=== PATIENT | male | born 1960 | race Caucasian/White ===

== ENCOUNTER 2017-08-29 11:45 | Emergency (ER) | payer BC ==
[2017-08-29 13:07] LABS: INR 1.09 (0.77-1.02)
--- NOTE | 2017-08-29 13:07 | RAD ---
HISTORY: Lightheaded COMPARISONS: None VIEWS: 1: frontal portable view of the chest at 12:50 PM. The right costophrenic angle is cut off. FINDINGS: LINES AND TUBES: A right-sided chest port is noted from an internal jugular vein approach with the tip overlying the superior vena cava. CARDIOMEDIASTINAL SILHOUETTE: The cardiomediastinal silhouette is normal for portable technique. PLEURA: The costophrenic angles are sharp. No pleural abnormalities are noted. LUNG PARENCHYMA: The lungs are clear. ABDOMEN: The upper abdomen is clear. There is no subphrenic gas. BONES AND SOFT TISSUES: No bone or soft tissue abnormalities are noted. Surgical clips are noted overlying the neck. IMPRESSION: NO ACTIVE CARDIOPULMONARY DISEASE.
[2017-08-29 13:08] LABS: EGFR Non-African American 61.2 (>60)
[2017-08-29 13:36] LABS: ABS Basophils 0 10^3/ul (0-0.2); ABS Eosinophils 0 10^3/ul (0-0.6); ABS Lymphocytes 0.2 10^3/ul (1.0-4.8); ABS Monocytes 0 10^3/ul (0-0.8); ABS Neutrophils 0 10^3/ul (1.5-7.7); ABS Nucleated RBC 0 10^3/ul; Eosinophil % 1.5 % (0-6); Hematocrit 21 % (42-52); Hemoglobin 7.3 g/dl (14.0-18.0); Mean Corpuscular HGB Conc 34 g/dl (31-36); Mean Corpuscular Hemoglobin 31 pg (27-31); Mean Corpuscular Volume 90 fL (80-94); Mean Platelet Volume 8.6 um3 (7.4-10.4); Nucleated Red Blood Cells % 3.6; Platelet Count 13 10^3/ul (150-450); Red Blood Count 2.38 10^6/ul (4.0-5.4); Red Cell Distribution Width 18 % (10.5-15); White Blood Count 0.3 10^3/ul (3.5-10.8)
[2017-08-29] MEDS ORDERED: diPHENhydraMINE PO* 25 MG PO ONE (14:21)
[2017-08-29] MEDS ORDERED: Acetaminophen TAB* 325 MG PO ONE (14:21)
[2017-08-29] MEDS ORDERED: Ondansetron INJ* 2 MG/ML VIAL IV ONE (18:51)
[2017-08-29 19:51] VITALS: BP 110/66
--- NOTE | 2017-08-29 20:36 | ED ---
Jerry Yung Stephanie, scribed for Nain Proctor MD on 08/29/17 at 1209 . Dizziness - HPI Summary HPI Summary: The pt is a 57 y/o M presenting to the ED with c/o dizziness that began over one month ago. Symptoms include chills, lightheadedness, epistaxis (began 2- chemos ago), and dysuria. The pt states his lightheadedness is constant. He states he feels fuzzy and his lips feel fuzzy. The pt is a cancer pt who receives chemotherapy 3x per week and then has 2 weeks off and then returns to chemotherapy 3x per week. The pt has prostate cancer that has spread to his lymph nodes since May. The pt states he last had chemotherapy 2 weeks ago. - History Of Current Complaint Chief Complaint: EDDizziness Stated Complaint: DIZZY Time Seen by Provider: 08/29/17 11:50 Hx Obtained From: Patient Onset/Duration: Still Present Timing: Constant Severity Currently: Moderate Character: Lightheaded, Dizzy Aggravating Factor(s): Nothing Alleviating Factor(s): Nothing Associated Signs And Symptoms: Positive: Other: - chills, epistaxis, dysuria - Allergies/Home Medications Allergies/Adverse Reactions: Allergies Allergy/AdvReac Type Severity Reaction Status Date / Time degarelix [From Firmagon] Allergy Hives Verified 08/29/17 11:59 fenoprofen [From Nalfon] Allergy Hives Verified 08/29/17 11:59 Home Medications: Home Medications Albuterol 2.5MG/3ML (0.083%)* [Ventolin 2.5 MG/3 ML NEB.DMITRI*] 2.5 mg INH QID PRN 08/29/17 [History Confirmed 08/29/17] Albuterol inh POWDER (NF) [Proair Respiclick] 2 puff INH QID PRN 08/29/17 [ History Confirmed 08/29/17] Amoxicillin/Clavulanate TAB* [Augmentin TAB 875*] 875 mg PO BID 08/29/17 [ History Confirmed 08/29/17] Aspirin TAB* [Aspirin 325 MG TAB*] 325 mg PO DAILY 08/29/17 [History Confirmed 08/29/17] Atorvastatin* [Lipitor*] 40 mg PO DAILY 08/29/17 [History Confirmed 08/29/17] Clopidogrel TAB* [Plavix TAB*] 75 mg PO DAILY 08/29/17 [History Confirmed ] Fluticasone-Salmeterol 500-50* [Advair Diskus 500-50*] 1 puff INH BID 08/29/17 [ History Confirmed 08/29/17] Lisinopril TAB* [Prinivil TAB*] 40 mg PO DAILY 08/29/17 [History Confirmed 08/29] Metoprolol Succinate XL TAB* [Toprol XL TAB*] 75 mg PO DAILY 08/29/17 [History Confirmed 08/29/17] Omeprazole CAP* [Prilosec CAP* 20 MG] 40 mg PO DAILY 08/29/17 [History Confirmed 08/29/17] Timolol 0.25% OPHTH.SOLN* [Timoptic Ophth.soln 0.25%] 1 drop RIGHT EYE BID 08/29 [History Confirmed 08/29/17] Tiotropium CAP.INH* [Spiriva CAP.INH*] 2 cap INH BID 08/29/17 [History Confirmed 08/29/17] cloNIDine TAB* [Catapres 0.1 MG TAB*] 0.1 mg PO TID 08/29/17 [History Confirmed 08/29/17] PMH/Surg Hx/FS Hx/Imm Hx Respiratory History: Reports: Hx Chronic Obstructive Pulmonary Disease (COPD) Sensory History: Denies: Hx Legally Blind EENT History: Denies: Hx Deafness - Cancer History Cancer Type, Location and Year: PROSTATE CANCER SPREAD TO LYMPH NODES SINCE MAY - Surgical History Surgery Procedure, Year, and Place: L HIP REPLACEMENT. prostatectomy Infectious Disease History: No Infectious Disease History: Denies: Traveled Outside the [place] in Last 30 Days - Family History Known Family History: Positive: Cardiac Disease, Diabetes, Renal Disease - Social History Occupation: Retired Lives: With Family Hx Substance Use: No Substance Use Type: Reports: None Review of Systems Positive: Chills. Negative: Fever Positive: Epistaxis Positive: dysuria Neurological: Other - dizziness, lightheadedness All Other Systems Reviewed And Are Negative: Yes Physical Exam - Summary Physical Exam Summary: General: mildly pale-appearing, no pain distress Skin: warm, color reflects adequate perfusion, dry Head: normal Eyes: EOMI, ED ENT: normal Neck: supple, nontender Respiratory: CTA, breath sounds present Cardiovascular: RRR Abdomen: soft, nontender Bowel: present Musculoskeletal: strength/ROM intact, mild bilateral pedal edema Neurological: normal, sensory/motor intact, A&O x3 Psychological: affect/mood appropriate Triage Information Reviewed: Yes Vital Signs On Initial Exam: Initial Vitals Temp Pulse Resp BP Pulse Ox 97.3 F 81 15 116/64 95 08/29/17 11:52 08/29/17 11:52 08/29/17 11:52 08/29/17 11:52 08/29/17 11:52 Vital Signs Reviewed: Yes Diagnostics - Vital Signs Vital Signs Temp Pulse Resp BP Pulse Ox 08/29/17 11:52 97.3 F 81 15 116/64 95 - Laboratory Lab Results: Lab Results 08/29/17 08/29/17 08/29/17 Range/Units 12:20 12:20 12:20 WBC 0.3 L (3.5-10.8) 10^3/ul RBC 2.38 L (4.0-5.4) 10^6/ul Hgb 7.3 L (14.0-18.0) g/dl Hct 21 L (42-52) % MCV 90 (80-94) fL MCH 31 (27-31) pg MCHC 34 (31-36) g/dl RDW 18 H (10.5-15) % Plt Count 13 L* (150-450) 10^3/ul MPV 8.6 (7.4-10.4) um3 Neut % (Auto) 13.4 L (38-83) % Lymph % (Auto) 71.0 H (25-47) % Hemphill % (Auto) 10.9 H (0-7) % Eos % (Auto) 1.5 (0-6) % Baso % (Auto) 3.2 H (0-2) % Absolute Neuts (auto) 0 L* (1.5-7.7) 10^3/ul Absolute Lymphs (auto) 0.2 L (1.0-4.8) 10^3/ul Absolute Monos (auto) 0 (0-0.8) 10^3/ul Absolute Eos (auto) 0 (0-0.6) 10^3/ul Absolute Basos (auto) 0 (0-0.2) 10^3/ul Absolute Nucleated RBC 0 10^3/ul Nucleated RBC % 3.6 Hem Pathologist Commnt Pending INR (Anticoag Therapy) (0.77-1.02) Sodium 138 L (139-145) mmol/L Potassium 4.0 (3.5-5.0) mmol/L Chloride 102 (101-111) mmol/L Carbon Dioxide 27 (22-32) mmol/L Anion Gap 9 (2-11) mmol/L BUN 27 H (6-24) mg/dL Creatinine 1.22 H (0.67-1.17) mg/dL Est GFR ( Amer) 78.7 (>60) Est GFR (Non-Af Amer) 61.2 (>60) BUN/Creatinine Ratio 22.1 H (8-20) Glucose 115 H (70-100) mg/dL Calcium 8.0 L (8.6-10.3) mg/dL Total Bilirubin 1.30 H (0.2-1.0) mg/dL AST 11 L (13-39) U/L ALT 26 (7-52) U/L Alkaline Phosphatase 68 (34-104) U/L C-Reactive Protein 92.61 H (< 5.00) mg/L Total Protein 6.0 L (6.4-8.9) g/dL Albumin 3.4 (3.2-5.2) g/dL Globulin 2.6 (2-4) g/dL Albumin/Globulin Ratio 1.3 (1-3) Blood Type A Positive Antibody Screen Negative Crossmatch See Detail 08/29/17 Range/Units 12:20 WBC (3.5-10.8) 10^3/ul RBC (4.0-5.4) 10^6/ul Hgb (14.0-18.0) g/dl Hct (42-52) % MCV (80-94) fL MCH (27-31) pg MCHC (31-36) g/dl RDW (10.5-15) % Plt Count (150-450) 10^3/ul MPV (7.4-10.4) um3 Neut % (Auto) (38-83) % Lymph % (Auto) (25-47) % Hemphill % (Auto) (0-7) % Eos % (Auto) (0-6) % Baso % (Auto) (0-2) % Absolute Neuts (auto) (1.5-7.7) 10^3/ul Absolute Lymphs (auto) (1.0-4.8) 10^3/ul Absolute Monos (auto) (0-0.8) 10^3/ul Absolute Eos (auto) (0-0.6) 10^3/ul Absolute Basos (auto) (0-0.2) 10^3/ul Absolute Nucleated RBC 10^3/ul Nucleated RBC % Hem Pathologist Commnt INR (Anticoag Therapy) 1.09 H (0.77-1.02) Sodium (139-145) mmol/L Potassium (3.5-5.0) mmol/L Chloride (101-111) mmol/L Carbon Dioxide (22-32) mmol/L Anion Gap (2-11) mmol/L BUN (6-24) mg/dL Creatinine (0.67-1.17) mg/dL Est GFR ( Amer) (>60) Est GFR (Non-Af Amer) (>60) BUN/Creatinine Ratio (8-20) Glucose (70-100) mg/dL Calcium (8.6-10.3) mg/dL Total Bilirubin (0.2-1.0) mg/dL AST (13-39) U/L ALT (7-52) U/L Alkaline Phosphatase (34-104) U/L C-Reactive Protein (< 5.00) mg/L Total Protein (6.4-8.9) g/dL Albumin (3.2-5.2) g/dL Globulin (2-4) g/dL Albumin/Globulin Ratio (1-3) Blood Type Antibody Screen Crossmatch Result Diagrams: 08/29/17 12:20 08/29/17 12:20 Lab Statement: Any lab studies that have been ordered have been reviewed, and results considered in the medical decision making process. - Radiology CXR Xray Interpretation: No Acute Changes Radiology Interpretation Completed By: Radiologist - NO ACTIVE CARIOPULMONARY DISEASE. ED physician has reviewed this report. - EKG 11:51 Cardiac Rate: NL EKG Rhythm: Sinus Rhythm - [address] Segment: Normal Ectopy: None Re-Evaluation - Re-Evaluation First Eval Re-Evaluation Time: 13:43 Change: Unchanged - 97/53, 73 BPM, 99 Second Eval Re-Evaluation Time: 18:44 Change: Improved - The pt still feels slightly dizzy but improved since the transfusion. ED phycian has discussed plan of discharge with the pt and the pt understands and agrees. Dizzy Course/Dx - Course Course Of Treatment: HOSPITALIST CONSULTED WHO, IN TURN, DISCUSSED WITH DR LUNDY. TRANSFUSED 1 UNIT PACKED RBCs. FEELS SLIGHTLY DIZZY STILL BUT, IMPROVED. HE WALKED TO THE BATHROOM. DISCUSSED ADMISSION VERSES GOING HOME WITH F/U TOMORROW WITH HIS KIER BOILER/ONCOLOGIST. THE RISK OF INFECTION IN THE HOSPITAL IS HIGHER THAN AT HOME. PATIENT PREFERS TO GO HOME. - Diagnoses Provider Diagnoses: Pancytopenia, Anemia - Provider Notifications Discussed Care Of Patient With: Nadeen Bell Time Discussed With Above Provider: 13:48 Instructed by Provider To: Admit As Inpatient - Critical Care Time Critical Care Time: 30-74 min Discharge - Sign-Out/Discharge Documenting (check all that apply): Discharge - Discharge Plan Condition: Stable Disposition: HOME Patient Education Materials: Anemia (ED), Pancytopenia (DC) Referrals: Non Staff,Doctor [Medical Doctor] - Additional Instructions: FOLLOW UP WITH YOUR KIER BOILER/ONCOLOGIST. RETURN TO THE EMERGENCY DEPARTMENT FOR ANY WORSENING OF YOUR CONDITION OR QUESTIONS OR CONCERNS. - Billing Disposition and Condition Condition: STABLE Disposition: HOME The documentation as recorded by the Jerry rangel Stephanie accurately reflects the service I personally performed and the decisions made by me, Nain Proctor MD.
--- NOTE | 2017-08-29 22:29 | CONS ---
CC: Dr. Enriquez from [place], [place]; Dr. Proctor * CONSULTATION REPORT: DATE OF CONSULT: 08/29/17 - EMERGENCY DEPT PRIMARY CARE PROVIDER: Dr. Enriquez from [place], [place] REQUESTING PHYSICIAN FOR CONSULT: Dr. Proctor. ATTENDING PHYSICIAN WHILE IN THE HOSPITAL: Nadeen Bell DO (report dictated by Harry Galvez NP). REASON FOR MEDICAL CONSULTATION: Evaluation for admission. HISTORY OF PRESENT ILLNESS: Mr. Valle is a 57-year-old male patient. He carries a history of prostate cancer with mets, COPD, TIA, hypertension, hyperlipidemia, carotid artery disease, who has a long history of prostate cancer. He was diagnosed in 2013. He underwent prostatectomy. He underwent radiation treatment. Despite this, his PSA was climbing. He was switched to hormonal therapy. He continued this until this summer when he started he says he was noticing there was fluid around the prostate and bladder. He underwent cystoscopy. His PSA actually remained stable. He was stopped on the hormonal therapy given the fluid that was recollecting according to the patient's report. He was evaluated back in April for abdominal discomfort, distention , and pain. He was found to have an enlarged lymph node in his groin. This was biopsied. Ultimately, he was found to have recurrence of disease and he started to be treated on chemotherapy. His last chemo and he is carboplatin and etoposide. 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 His last treatment was on 08/20/17 and he received Neulasta on 08/21/17. He had been doing well, but he says he also got 2 units of blood prior to the last chemo treatment. He says that he has been having some difficulty with urination, which he says he has been having since the treatment. He says that his biggest complaint why he came in today is he felt very dizzy, felt lightheaded. He says that he is continuing to take his 3 blood pressure meds. He says that he was feeling like he was going to faint, but he did not faint, just said he felt very lightheaded particularly with position change. He said he had intermittent bloody nose, which he had been having again since being on this type of chemo regimen. He denied any tarry stool. He denied any abdominal pain. He denied having any vomiting of the blood. He said that he was concerned because of the discomfort and because of the dizziness, he denied any chest pain. Denied having any shortness of breath. He denied having any orthopnea. He says he was concerned because really the dizziness and then feeling like he was almost going to faint and decided to come in to the ED today. He came in, was evaluated. He was noted to be pancytopenic. His hemoglobin was 7.3. We do not have a baseline for him, but because of these findings and the fact that he was hypotensive, we were asked to evaluate the patient for admission. PAST MEDICAL HISTORY: Significant for: 1. Prostate cancer with metastasis. 2. COPD. 3. History of TIA. 4. Hypertension. 5. Hyperlipidemia. 6. Carotid artery disease. PAST SURGICAL HISTORY: 1. He has had a port placement. 2. He has had carotid endarterectomy. 3. He has had the left total hip arthroplasty. 4. He has had a prostatectomy. 5. He has had multiple cystoscopies. HOME MEDICATIONS: Include: 1. Augmentin 875 mg p.o. b.i.d. 2. Ventolin 2.5 mg inhaled 4 times a day as needed. 3. ProAir 2 puffs inhaled 4 times a day as needed. 4. Timolol 1 drop right eye b.i.d. 5. Spiriva 2 capsules p.o. inhaled daily. 6. Toprol XL 75 mg daily. 7. Catapres 0.1 mg p.o. t.i.d. 8. Lisinopril 40 mg daily. 9. Prilosec 40 mg daily. 10. Lipitor 40 mg daily. 11. Advair 1 puff inhaled b.i.d. 12. Plavix 75 mg daily. 13. Aspirin 325 mg p.o. daily. ALLERGIES TO MEDICATIONS: Include DEGARELIX and FENOPROFEN. FAMILY HISTORY: His mother had a history of end-stage renal disease and diabetes. She is . Father of colon cancer. SOCIAL HISTORY: He is a former smoker, he quit about 15 years ago. He does not drink alcohol. Surrogate decision maker is his . REVIEW OF SYSTEMS: There is no documented fever. He denied having any significant weight change. He denies having any double vision. He denied having any ear discharge. He denies having any rhinorrhea. He denied any sore throat. No thyroid enlargement. Denied having any chest pain. Did admit to dysuria. No frequency. No seizure. No loss of consciousness. No pruritus and no skin ulcerations. Review of 14 systems completed. All others negative. PHYSICAL EXAM: Vital Signs: Blood pressure 97/53 with a pulse of 73, respirations 18, O2 sat 96%, temperature 97.3. General: At this time, Mr. Valle is a 57-year- old male patient. He is sitting in the ED stretcher. He does appear to be chronically ill appearing. He does appear to be pale. HEENT : Head is atraumatic, normocephalic. Eyes: Sclerae does appear to be pale. Throat: Oral mucosa appears to be dry. No oropharyngeal erythema. Heart: Sounds S1, S2. Regular rate and rhythm. No murmurs, rubs or gallops. Lungs: Clear to auscultation bilaterally. No wheezes, rales or rhonchi. Abdomen: Soft, flat, nontender. Bowel sounds are present. Extremities: Pulses were 2+ through. He is moving all 4 extremities with 5/5 strength. Neurologically, the patient is awake, alert, and oriented x3. No gross focal deficits. Tongue midline. Extremities: Pulses were 2+ throughout moving all 4 extremities with 5/5 strength. Neurologically, no gross focal deficits. Skin: Grossly intact. DIAGNOSTIC STUDIES/LAB DATA: WBC is 0.3, RBC is 2.38, hemoglobin is 7.3, hematocrit of 21, and platelet count of 13,000. The INR was 1.09. The sodium was 138, potassium was 4.0, chloride of 102, bicarb of 27. The creatinine was 1.22, glucose 115, calcium 8.0, total bili 1.3, AST 11, ALT 26, alk phos 58, albumin was 3.4. The urine is pending. I did request one. Chest x-ray showed no active cardiopulmonary disease. There was an EKG obtained today. Again, I do not have a previous for comparison , but it showed a sinus rhythm with a rate of 79. No ST elevations or T-wave inversions. Old medical records reviewed. ASSESSMENT AND PLAN: Mr. Valle is a 57-year-old male patient with multiple medical problems coming into the ED today with complaints of dizziness. We were asked to evaluate for admission. My recommendations at this point are: 1. Dizziness. I suspect this is multifactorial. Again on position change in the ED, his symptoms are worse. I think he has symptomatic anemia. I would recommend giving him 1 unit of blood. I recommend giving him IV fluids possibly 1 L minimally and reevaluating his symptoms. Should he have persistent dizziness, we can consider evaluation for admission. However, he is pancytopenic, so I would like to try to treat him here in the ED and discharge him home. I did touched base with our oncology group about this and they were in agreement with this plan. I also told the patient that he should stop taking his blood pressure meds and to follow up with his primary tomorrow and check his blood pressures daily and if it is elevated, with his systolics greater than 130 and diastolics greater than 100, he should call his primary right way to get started back on his blood pressure meds, but I think the combination of him becoming anemic and taking his blood pressure medications have caused him to feel this dizziness. I have asked him to stop these meds and again I think this is probably from dehydration and I believe the anemia is probably from the bone marrow suppression due to his chemo regimen. I think with a unit of blood if he is feeling better with blood and IV fluids, then he could be safely discharged with close followup with his primary and his oncology group. I did discuss with the patient to come back should he have any fevers, worsening dizziness or any worsening symptoms. 2. Prostate cancer with metastasis. He is on carboplatin. He is also on etoposide. Again, I do note that we will continue these meds. He is to follow closely with his primary oncology group. He is pancytopenic, which is to be expected from his medications that he had about 8 days ago. 3. Chronic obstructive pulmonary disease, does not appear to be exacerbation. Continue meds as prescribed. 4. Transient ischemic attack with history of carotid artery disease. Continue with secondary prevention and continue his meds. 5. Dysuria. Again, this could be a side effect of the medications particularly chemo. I will go ahead and get the UA. 6. Hypertension. At this point, I would hold his blood pressure meds as he is hypotensive. 7. Hyperlipidemia. Continue the statin therapy. 8. Issues to return to the hospital included but not limited to chest pain, shortness of breath, fevers, chills, nausea, vomiting, syncope, worsening dizziness or any other worrisome symptoms. TIME SPENT: Time spent on the consult was approximately 70 minutes, greater than half the time was spent face to face with the patient obtaining my history and physical, the other half of the time was spent going over the plan of care with the patient and implementing the plan of care. I did discuss the plan of care with my attending, Dr. Bell. I also ran the case with oncology group and they are in agreement and also did touch base with Dr. Proctor. HARRY GALVEZ, EDUCATIONAL TECHNOLOGY COORDINATOR [id number]/CPS #: [id number] GERRI
== END 2017-08-29 19:15 | disposition home or self-care (01) ==
LOC: ED 11:45 → MED 14:22 → UNDOADMOB 14:22 → ED 19:15
DX: D61.818 Other pancytopenia (principal); D64.9 Anemia, unspecified; R42 Dizziness and giddiness; Z88.8 Allergy status to other drugs, medicaments and biological substances; J44.9 Chronic obstructive pulmonary disease, unspecified; Z79.899 Other long term (current) drug therapy; Z86.73 Personal history of transient ischemic attack (TIA), and cerebral infarction without residual deficits; Z85.46 Personal history of malignant neoplasm of prostate; E78.5 Hyperlipidemia, unspecified; I25.10 Atherosclerotic heart disease of native coronary artery without angina pectoris; Z79.01 Long term (current) use of anticoagulants; Z87.891 Personal history of nicotine dependence
CPT/HCPCS: 36415; 36430; 71045; 80053; 85025; 85060; 85610; 86140; 86850; 86900; 86901; 86922; 93005; 96374; 99291; A9270-GY; J1642; J2405; P9040